=== PATIENT | female | born 1950 | race Caucasian/White ===

== ENCOUNTER 2019-11-11 07:10 | Outpatient (CLI) | payer MEDICARE, OTHER | END 2019-11-11 23:59 | disposition home or self-care (01) | LOC: LAB 07:10 | PROVIDERS: ATTEND Orthopaedic Surgery | DX: Z01.812 Encounter for preprocedural laboratory examination (principal); Z20.828 Contact with and (suspected) exposure to other viral communicable diseases; S83.242D Other tear of medial meniscus, current injury, left knee, subsequent encounter; X58.XXXD Exposure to other specified factors, subsequent encounter ==

== ENCOUNTER 2019-11-13 06:49 | Day surgery (SDC) | payer MEDICARE, OTHER ==
[2019-11-13] MEDS ORDERED: SEVOFLURANE 250 ML BOTTLE IH ONE (06:50)
[2019-11-13] MEDS ORDERED: PROPOFOL 200 MG/20 ML BOTTLE IV ONE (06:50)
[2019-11-13] MEDS ORDERED: ONDANSETRON 4 MG/2 ML VIAL IV ONE (06:50)
[2019-11-13] MEDS ORDERED: DEXAMETHASONE SOD PHOSPHATE 4 MG INJ IV ONE (06:50)
[2019-11-13] MEDS ORDERED: CEFAZOLIN 1 G VIAL MC ONE (06:50)
[2019-11-13] MEDS ORDERED: BUPIVACAINE/EPI PF 0.25% 30 ML VIAL ONE (08:05)
[2019-11-13] MEDS ORDERED: MORPHINE SULFATE PF 10 MG/10 ML AMPUL IV ONE (08:05)
[2019-11-13] MEDS ORDERED: KETOROLAC TROMETHAMINE 30 MG INJ ONE (09:34)
[2019-11-13] MEDS ORDERED: ONDANSETRON 4 MG/2 ML VIAL ONE (09:42)
[2019-11-13] MEDS ORDERED: FENTANYL CITRATE 100 MCG/2 ML AMPUL ONE (09:42)
[2019-11-13] MEDS ORDERED: TRAMADOL HCL 50 MG TABLET ONE (11:25)
== END 2019-11-13 12:34 | disposition home or self-care (01) ==
LOC: DS 06:49
PROVIDERS: ATTEND Orthopaedic Surgery
DX: S83.242A Other tear of medial meniscus, current injury, left knee, initial encounter (principal); S83.282A Other tear of lateral meniscus, current injury, left knee, initial encounter; M94.262 Chondromalacia, left knee; M65.88 Other synovitis and tenosynovitis, other site; M17.12 Unilateral primary osteoarthritis, left knee; Z79.899 Other long term (current) drug therapy; Z72.89 Other problems related to lifestyle; Z98.890 Other specified postprocedural states; X58.XXXA Exposure to other specified factors, initial encounter; Y93.89 Activity, other specified; Y92.89 Other specified places as the place of occurrence of the external cause; Y99.8 Other external cause status
CPT/HCPCS: 71045; A4663; J0690; J1100; J1885; J2274; J2405; J3010; J3490; J7120